=== PATIENT | male | born 1995 | race Caucasian/White ===

== ENCOUNTER 2020-12-13 16:02 | Outpatient (REF) | payer OTHER, SELFPAY | END 2020-12-13 16:03 | disposition home or self-care (01) | LOC: HO.LAB 16:02 | PROVIDERS: Visit Provider Internal Medicine | DX: Z20.822 Contact with and (suspected) exposure to COVID-19 (principal) | CPT/HCPCS: 36415; C9803; U0003 ==

== ENCOUNTER 2020-12-23 17:22 | Outpatient (REF) | payer OTHER, SELFPAY | END 2020-12-23 17:23 | disposition home or self-care (01) | LOC: HO.LAB 17:22 | PROVIDERS: Visit Provider Internal Medicine | DX: Z20.822 Contact with and (suspected) exposure to COVID-19 (principal) | CPT/HCPCS: 36415; C9803; U0003 ==